=== PATIENT | female | born 1960 | race Caucasian/White ===

== ENCOUNTER 2016-11-16 11:52 | Emergency (ER) | payer OTHER | END 2016-11-16 12:24 | disposition home or self-care (01) | LOC: CFTX 11:52 → CED 11:52 → CFTX 12:16 | DX: I83.891 Varicose veins of right lower extremity with other complications (principal); Z23 Encounter for immunization; W26.9XXA Contact with unspecified sharp object(s), initial encounter; Y92.009 Unspecified place in unspecified non-institutional (private) residence as the place of occurrence of the external cause | CPT/HCPCS: 29520; 90471; 90715; 99283 ==